=== PATIENT | female | born 1990 | race Two or more races ===

== ENCOUNTER 2018-06-14 16:07 | Emergency (ER) | payer MEDICAID ==
[~2018-06-14] VITALS: Ht 149.9 cm; Wt 89.8 kg
[2018-06-14] MEDS ORDERED: Excedrin Migraine tab ORAL ONE (16:45)
[2018-06-14] MEDS ORDERED: IBUPROFEN600 MG ORAL (16:47)
[2018-06-14 17:34] LABS: APPEARANCE,URINE CLEAR; BILIRUBIN, URINE NEGATIVE (NEGATIVE); COLOR,URINE PALE YELLOW; GLUCOSE, URINE (UA) NEGATIVE (NEGATIVE); KETONES,URINE NEGATIVE (NEGATIVE); LEUKOCYTE ESTERASE ,URINE NEGATIVE (NEGATIVE); NITRITE,URINE NEGATIVE (NEGATIVE); PH,URINE 5 (4.5-8.0); PROTEIN,URINE NEGATIVE (NEGATIVE); UROBILINOGEN,URINE NORMAL MG/DL (0.0-1.0)
--- NOTE | 2018-06-14 17:42 | Emergency Room Report ---
History of Present Illness General Chief Complaint: Headache Source: Patient Present Illness HPI 27-year-old female presents emergency department complaining of 6 out of 10 in severity headache in the frontal region of her head she describes as constant and pressure-like times one week with some minimal relief with ibuprofen however did not completely resolve. Patient also reports nasal congestion and pressure to the front of her face 3 days and generalized backaches. Patient denies fevers, chills, sudden onset of her headache, neck pain or stiffness, photophobia, nausea or vomiting. Patient denies recent head trauma. Patient denies history of migraines. Dysuria, hematuria, urinary frequency or urgency. Patient denies . Allergies: Coded Allergies: PENICILLINS (Verified Allergy, Unknown, 06/14/18) Patient History Past Medical History: see triage record Past Surgical History: none Pertinent Family History: none Last Menstrual Period: May 2018 Now: No Reviewed Nursing Documentation: PMH: Agreed; PSxH: Agreed Nursing Documentation-PMH Past Medical History: No History, Except For Review of Systems All Other Systems: negative except mentioned in HPI Physical Exam Vital Signs Date Time Temp Pulse Resp B/P (MAP) Pulse Ox O2 Delivery O2 Flow Rate FiO2 06/14/18 16:16 98.1 75 15 126/92 98 Room Air 98.1 Sp02 EP Interpretation: reviewed, normal General Appearance: no apparent distress, alert, GCS 15, non-toxic Head: normocephalic, atraumatic Eyes: bilateral eye normal inspection, bilateral eye PERRL ENT: hearing grossly normal, normal pharynx, normal voice, TMs + canals normal , uvula midline, moist mucus membranes, nasal congestion, other - some bilateral ttp to the maxillary sinuses. Neck: full range of motion, no meningismus, no bony tend Respiratory: lungs clear, normal breath sounds, speaking full sentences Cardiovascular #1: regular rate, rhythm Gastrointestinal: non tender, soft Rectal: deferred Genitourinary: normal inspection, no CVA tenderness Musculoskeletal: back normal, gait/station normal, normal range of motion, non- tender Neurologic: alert, oriented x3, responsive, motor strength/tone normal, sensory intact, normal gait, speech normal, other - no nystagmus, or facial droop, equal supervisor printing and stamping strength. , grossly normal Psychiatric: judgement/insight normal Skin: normal color, no rash, warm/dry, well hydrated Lymphatic: no adenopathy Medical Decision Making PA Attestation Dr. Berry is my supervising Physician whom patient management has been discussed with. Diagnostic Impression: Primary Impression: Headache Qualified Codes: R51 - Headache Additional Impressions: Congestion of nasal sinus Congestion of paranasal sinus ER Course 27-year-old female presents emergency department complaining of 6 out of 10 in severity headache in the frontal region of her head she describes as constant and pressure-like times one week with some minimal relief with ibuprofen however did not completely resolve. Patient also reports nasal congestion and pressure to the front of her face 3 days and generalized backaches. Patient denies fevers, chills, sudden onset of her headache, neck pain or stiffness, photophobia, nausea or vomiting. Patient denies recent head trauma. Patient denies history of migraines. Dysuria, hematuria, urinary frequency or urgency. Patient denies . Ddx considered but are not limited to migraine, SAH, Pseudomotor Cerebri,, Mass lesion, Cluster ASHLEY, Tension ASHLEY, Post lumbar puncture ASHLEY. Vital signs: are WNL, pt. is afebrile H&PE are most consistent with sinus pressure headache ORDERS: - UA: unremarkable ED INTERVENTIONS: - Reglan PO -Excedrin migraine DISCHARGE: At this time pt. is stable for d/c to home. Will provide printed patient care instructions, and any necessary prescriptions. Care plan and follow up instructions have been discussed with the patient prior to discharge. Labs Test 06/14/18 16:55 Urine Color Pale yellow Urine Appearance Clear Urine pH 5 (4.5-8.0) Urine Specific [place] 1.025 (1.005-1.035) Urine Protein Negative (NEGATIVE) Urine Glucose (UA) Negative (NEGATIVE) Urine Ketones Negative (NEGATIVE) Urine Blood 1+ (NEGATIVE) Urine Nitrite Negative (NEGATIVE) Urine Bilirubin Negative (NEGATIVE) Urine Urobilinogen Normal MG/DL (0.0-1.0) Urine Leukocyte Esterase Negative (NEGATIVE) Urine RBC 2-4 /HPF (0 - 2) Urine WBC 0 /HPF (0 - 2) Urine Squamous Epithelial Cells Occasional /LPF Urine Bacteria Occasional /HPF (NONE) Last Vital Signs Date Time Temp Pulse Resp B/P (MAP) Pulse Ox O2 Delivery O2 Flow Rate FiO2 06/14/18 17:08 98.1 06/14/18 16:16 75 15 126/92 98 Room Air Disposition: HOME, SELF-CARE Condition: Stable Scripts Metoclopramide Hcl* (REGLAN*) 10 Mg Tablet 10 MG ORAL THREE TIMES A DAY, #10 TAB Prov: Bella Del Rosario 06/14/18 Oxymetazoline HCl (Afrin) 15 Ml [place] 2 SPRAY NASAL TWICE A DAY, #15 ML Prov: Bella Del Rosario 06/14/18 Ibuprofen* (MOTRIN*) 600 Mg Tablet 600 MG ORAL THREE TIMES A DAY, #30 TAB 0 Refills Prov: Bella Del Rosario 06/14/18 Patient Instructions: General Headache Without Cause Additional Instructions: Take medications as directed. Follow up with a Primary Care Provider in 3-5 days, even if your symptoms have resolved. --Please review list of primary care clinics, if you do not already have a primary care provider Return sooner to ED if new symptoms occur, or current symptoms become worse. - Please note that this Emergency Department Report was dictated using [employer] technology software, occasionally this can lead to erroneous entry secondary to interpretation by the dictation equipment. Bella Del Rosario Jun 14, 2018 17:42
[2018-06-14 17:50] VITALS: BP 126/92
[2018-06-14] MEDS ORDERED: AFRIN NASAL SPR30 ML NASAL (18:03)
[2018-06-14] MEDS ORDERED: REGLAN10 MG ORAL (18:03)
[2018-06-14 18:14] VITALS: BP 126/92
== END 2018-06-14 18:30 | disposition home or self-care (01) ==
LOC: EMR 16:35
DX: R51 Headache (principal); R09.81 Nasal congestion; Z88.0 Allergy status to penicillin
CPT/HCPCS: 81003; 99283